=== PATIENT | male | born 1960 ===

== ENCOUNTER 2021-02-25 13:30 | Emergency (ER) | payer OTHER ==
[~2021-02-25] VITALS: Ht 185.4 cm; Wt 145.2 kg
[2021-02-25 14:10] LABS: BASOPHILS ABSOLUTE AUTO 0.07 K/mm3 (0.00-0.23); BASOPHILS PERCENT AUTO 1 % (0-2); EOSINOPHILS ABSOLUTE AUTO 0.07 K/mm3 (0.00-0.68); EOSINOPHILS PERCENT AUTO 1 % (0-6); Hematocrit 41.6 % (37.0-53.0); Hemoglobin 14.3 g/dL (13.5-17.5); IMMATURE GRAN ABSOLUTE AUTO 0.01 K/mm3 (0.00-0.10); IMMATURE GRAN PERCENT AUTO 0 % (0-1); LYMPHOCYTES ABSOLUTE AUTO 1.77 K/mm3 (0.84-5.20); LYMPHOCYTES PERCENT AUTO 25 % (21-46); MONOCYTES ABSOLUTE AUTO 0.66 K/mm3 (0.16-1.47); MONOCYTES PERCENT AUTO 9 % (4-13); Mean Corpuscular HGB 29.9 pg (26.0-34.0); Mean Corpuscular HGB Conc 34.4 g/dL (31.5-36.5); Mean Corpuscular Volume 87 fL (80-100); NEUTROPHILS ABSOLUTE AUTO 4.46 K/mm3 (1.96-9.15); NEUTROPHILS PERCENT AUTO 63 % (41-73); Platelet Count 62 K/mm3 (150-400); RDW Coefficient Variation 14.1 % (11.7-14.2); RDW Standard Deviation 45.4 fL (35.1-46.3); Red Blood Cell Count 4.78 M/mm3 (4.30-5.90); White Blood Cell Count 7.04 K/mm3 (4.00-11.30)
[2021-02-25 14:18] LABS: Mean Platelet Volume 13.7 fL (9.1-12.4)
[2021-02-25 14:32] LABS: Alanine Aminotransfer (ALT/SGP 46 U/L (12-78); Albumin/Globulin Ratio 0.8 (0.8-1.8); Alk Phos 58 U/L (50-136); Anion Gap 5 mmol/L (6-16); Aspartate Aminotrans (AST/SGOT 46 U/L (12-37); Bilirubin, Total 1.7 mg/dL (0.1-1.0); Blood Urea Nitrogen 9 mg/dL (8-24); Bun/Creatinine Ratio 11.4 (12.0-20.0); CO2, Blood 29 mmol/L (21-32); Calcium, Blood 8.5 mg/dL (8.5-10.1); Chloride, Blood 102 mmol/L (98-108); Creatinine, Blood 0.79 mg/dL (0.60-1.20); Glomerular Filtration Rate >60 (60-); Glucose, Blood 213 mg/dL (70-99); Potassium, Blood 3.5 mmol/L (3.5-5.5); Sodium, Blood 136 mmol/L (136-145); Troponin I <0.015 ng/mL (0.000-0.040)
[2021-02-25] MEDS ORDERED: Prednisone20 MG PO (16:29)
[2021-02-25] MEDS ORDERED: INSULIN SYRING SC (16:29)
== END 2021-02-25 16:56 | disposition home or self-care (01) ==
LOC: ER 13:30
PROVIDERS: Physician Assistant
DX: E11.40 Type 2 diabetes mellitus with diabetic neuropathy, unspecified (principal); R60.0 Localized edema; I10 Essential (primary) hypertension
CPT/HCPCS: 71046; 80053; 83690; 83880; 84484; 85025; 93005; 93010; 93922; 96374; 99284-25; J3010

== ENCOUNTER 2021-08-23 13:50 | Inpatient (IN) | payer OTHER ==
[~2021-08-23] VITALS: Ht 185.4 cm; Wt 119.9 kg
[~2021-08-23 13:50] MED LIST: INSULIN SYRING SC; Prednisone20 MG PO
[2021-08-23 14:49] LABS: BASOPHILS ABSOLUTE AUTO 0.06 K/mm3 (0.00-0.23); BASOPHILS PERCENT AUTO 0 % (0-2); EOSINOPHILS ABSOLUTE AUTO 0.01 K/mm3 (0.00-0.68); EOSINOPHILS PERCENT AUTO 0 % (0-6); Hematocrit 40.8 % (37.0-53.0); Hemoglobin 13.5 g/dL (13.5-17.5); IMMATURE GRAN ABSOLUTE AUTO 0.12 K/mm3 (0.00-0.10); IMMATURE GRAN PERCENT AUTO 1 % (0-1); LYMPHOCYTES ABSOLUTE AUTO 1.92 K/mm3 (0.84-5.20); LYMPHOCYTES PERCENT AUTO 9 % (21-46); MONOCYTES PERCENT AUTO 4 % (4-13); Mean Corpuscular HGB 30.3 pg (26.0-34.0); Mean Corpuscular HGB Conc 33.1 g/dL (31.5-36.5); Mean Corpuscular Volume 92 fL (80-100); Mean Platelet Volume 12.7 fL (9.1-12.4); NEUTROPHILS ABSOLUTE AUTO 19.76 K/mm3 (1.96-9.15); NEUTROPHILS PERCENT AUTO 87 % (41-73); Platelet Count 188 K/mm3 (150-400); RDW Coefficient Variation 14.7 % (11.7-14.2); RDW Standard Deviation 49.5 fL (35.1-46.3); Red Blood Cell Count 4.46 M/mm3 (4.30-5.90); White Blood Cell Count 22.67 K/mm3 (4.00-11.30)
[2021-08-23 15:22] LABS: Alanine Aminotransfer (ALT/SGP 34 U/L (12-78); Albumin, Blood 3.4 g/dL (3.4-5.0); Albumin/Globulin Ratio 0.8 (0.8-1.8); Alk Phos 43 U/L (50-136); Anion Gap 19 mmol/L (6-16); Aspartate Aminotrans (AST/SGOT 30 U/L (12-37); Bilirubin, Total 1.6 mg/dL (0.1-1.0); Blood Urea Nitrogen 56 mg/dL (8-24); Bun/Creatinine Ratio 60.4 (12.0-20.0); CO2, Blood 19 mmol/L (21-32); Calcium, Blood 10.5 mg/dL (8.5-10.1); Chloride, Blood 102 mmol/L (98-108); Creatinine, Blood 0.93 mg/dL (0.60-1.20); Globulin, Blood 4.1 g/dL (2.2-4.0); Glomerular Filtration Rate >60 (60-); Glucose, Blood 232 mg/dL (70-99); Potassium, Blood 4.5 mmol/L (3.5-5.5); Sodium, Blood 140 mmol/L (136-145); Total Protein, Blood 7.5 g/dL (6.4-8.2)
[2021-08-23] MEDS ORDERED: METF500 PO (16:13)
[2021-08-23] MEDS ORDERED: ONDA4ODT (16:13)
[2021-08-23] MEDS ORDERED: GABA800 PO (16:13)
[2021-08-23] MEDS ORDERED: LISI5 PO (16:13)
[2021-08-23] MEDS ORDERED: ZOCOR20 MG PO (16:14)
[2021-08-23] MEDS ORDERED: Percocet 5-3251 EACH PO (16:14)
[2021-08-23] MEDS ORDERED: GABA100 PO (16:15)
[2021-08-23] MEDS ORDERED: FURO20 PO (16:16)
[2021-08-23] MEDS ORDERED: Aspir 8181 MG PO (16:16)
[2021-08-23] MEDS ORDERED: VITAMIN D310 MC5 PO (16:16)
[2021-08-23] MEDS ORDERED: STEGLATRO5 MG PO (16:17)
[2021-08-23 18:08] LABS: Troponin I <0.015 ng/mL (0.000-0.040)
[2021-08-23 19:55] LABS: Influenza A, PCR NEGATIVE (NEGATIVE); Influenza B, PCR NEGATIVE (NEGATIVE); Resp Syncytial Virus, PCR NEGATIVE (NEGATIVE); SARS-Cov-2 (COVID-19) PCR, MMC NEGATIVE (NEGATIVE)
[2021-08-23 21:08] LABS: Source, Urine Clean Catch
[2021-08-23 21:14] LABS: Appearance, Urine Clear (Clear); Bilirubin, Urine Neg (Neg); Blood, Urine Neg (Neg); Color, Urine Yellow (P-Yellow); Glucose Qualitative, Urine 4+ (Neg); Ketones, Urine 2+ (Neg); Leukocyte Esterase, Urine Neg (Neg); Nitrite, Urine Neg (Neg); Protein, Urine 1+ (Neg); Specific Gravity, Urine 1.015 (1.003-1.022); Urobilinogen, Urine NORM (Normal)
[2021-08-23 23:04] LABS: International Normalized Ratio 1.3; Prothrombin Time Results 13.4 Sec (9.7-11.5)
[2021-08-23 23:12] LABS: Percent Saturation 29.4 % (20.0-50.0)
[2021-08-24 03:17] LABS: BASOPHILS ABSOLUTE AUTO 0.03 K/mm3 (0.00-0.23); BASOPHILS PERCENT AUTO 0 % (0-2); EOSINOPHILS ABSOLUTE AUTO 0.01 K/mm3 (0.00-0.68); EOSINOPHILS PERCENT AUTO 0 % (0-6); Hematocrit 32.9 % (37.0-53.0); Hemoglobin 11.3 g/dL (13.5-17.5); IMMATURE GRAN ABSOLUTE AUTO 0.06 K/mm3 (0.00-0.10); IMMATURE GRAN PERCENT AUTO 0 % (0-1); LYMPHOCYTES ABSOLUTE AUTO 2.14 K/mm3 (0.84-5.20); LYMPHOCYTES PERCENT AUTO 15 % (21-46); MONOCYTES ABSOLUTE AUTO 1.38 K/mm3 (0.16-1.47); MONOCYTES PERCENT AUTO 9 % (4-13); Mean Corpuscular HGB 30.9 pg (26.0-34.0); Mean Corpuscular HGB Conc 34.3 g/dL (31.5-36.5); Mean Corpuscular Volume 90 fL (80-100); NEUTROPHILS ABSOLUTE AUTO 11.04 K/mm3 (1.96-9.15); NEUTROPHILS PERCENT AUTO 75 % (41-73); Platelet Count 78 K/mm3 (150-400); RDW Coefficient Variation 14.9 % (11.7-14.2); RDW Standard Deviation 48.9 fL (35.1-46.3); Red Blood Cell Count 3.66 M/mm3 (4.30-5.90); White Blood Cell Count 14.66 K/mm3 (4.00-11.30)
[2021-08-24 03:31] LABS: International Normalized Ratio 1.28; Prothrombin Time Results 13.2 Sec (9.7-11.5)
[2021-08-24 03:43] LABS: Alanine Aminotransfer (ALT/SGP 31 U/L (12-78); Albumin, Blood 2.8 g/dL (3.4-5.0); Albumin/Globulin Ratio 0.8 (0.8-1.8); Alk Phos 30 U/L (50-136); Anion Gap 6 mmol/L (6-16); Aspartate Aminotrans (AST/SGOT 20 U/L (12-37); Bilirubin, Total 0.9 mg/dL (0.1-1.0); Blood Urea Nitrogen 48 mg/dL (8-24); Bun/Creatinine Ratio 52.7 (12.0-20.0); CO2, Blood 27 mmol/L (21-32); Chloride, Blood 105 mmol/L (98-108); Creatinine, Blood 0.91 mg/dL (0.60-1.20); Globulin, Blood 3.6 g/dL (2.2-4.0); Glomerular Filtration Rate >60 (60-); Glucose, Blood 186 mg/dL (70-99); Sodium, Blood 138 mmol/L (136-145); Total Protein, Blood 6.4 g/dL (6.4-8.2)
--- NOTE | 2021-08-24 05:56 | NUR ---
SHIFT SUMMARY ASSUMED CARE OF PT AT 2139. PT IS A/OX4. PT IS BLIND. PT HAS N/T IN LOWER EXTREMITES. HEART SOUNDS REGULAR, LUNG SOUNDS CLEAR. PT USED URINAL T/O THE NIGHT. PT C/O PAIN IN ABD, MEDICATED PER EMAR. CALL LIGHT IN REACH, BED IN LOWEST POSTION.
--- NOTE | 2021-08-24 10:24 | NUR ---
PATIENT ALERT AND ORIENTED X4. NUMBNESS AND TINLING TO BILAT LOWER EXTREM, PT STATES CHRONIC. BLIND IN BOTH EYES. RESPIRATORY WNL. TELE SHOWING SINUS WITH HR 80-90'S. BP STABLE. DENIES CHEST PAIN/PRESSURE. MINIMAL EDEMA TO LOWER EXTREMITIES. BIG TOE ON LEFT SIDE AMPUTATED. PATIENT OVERALL WEAK. ABLE TO TURN SELF IN BED. ABDOMIN DISTENDED PER PATIENT NOT ABNORMAL. TENDER TO TOUCH, PATIENT STATES ABDOMEN IS FEELING BETTER THAN YESTERDAY. NO SIGNS OF BLEEDING. SANDOSTATIN INFUSING. ANTIBIOTICS INFUSED THIS AM. ACHS BLOOD SUGARS. NPO AT THIS TIME FOR ENDOSCOPY. CALL LIGHT IN REACH, PATIENT SLEEPING AT THIS TIME. WILL CONTINUE TO MONITOR.
[2021-08-24 11:07] LABS: Hematocrit 32.5 % (37.0-53.0); Hemoglobin 10.9 g/dL (13.5-17.5)
--- NOTE | 2021-08-24 12:36 | NUR ---
08/24/21 1236 Andre Muse History, Chart, Medications and Allergies reviewed before start of procedure.MONITOR INTACT WITH CONTINUOUS PULSE OXIMETRY AND INTERMITTENT BP.3-LEAD EKG REVIEWED WITH PHYSICIAN PRIOR TO START OF PROCEDURE.O2 VIA POM INTACT THROUGHOUT SEDATION/PROCEDURE. See Anesthesia record.
--- NOTE | 2021-08-24 13:20 | NUR ---
PT BACK FROM ENDOSCOPY. SLEEPY AT THIS TIME. VITAL SIGNS STABLE. SPOKE WITH DR. SCOTT TO CONFIRM PROPANOLOL. SANDOSTATIN AND NORMAL SALINE CONTINUES TO INFUSE. FULL LIQUID DIET. WILL CONTINUE TO MONITOR. CALL LIGHT IN REACH.
--- NOTE | 2021-08-24 18:12 | NUR ---
SHIFT SUMMARY: NO ACUTE CHANGES. PATIENT TOLERATING FULL LIQUID DIET AT THIS TIME. SANDOSTATIN AND NS INFUSING. CALL LIGHT IN REACH. SEE PREVIOUS NOTES. ON ROOM AIR. TELE SHOWING SINUS RHYTHM. WILL REPORT OFF TO ONCOMING RN.
[2021-08-24 19:25] LABS: Hematocrit 30.7 % (37.0-53.0); Hemoglobin 10.4 g/dL (13.5-17.5)
[2021-08-25 04:13] LABS: Hematocrit 30.6 % (37.0-53.0); Hemoglobin 10.3 g/dL (13.5-17.5)
--- NOTE | 2021-08-25 13:22 | NUR ---
PT ALERT AND ORIENTED X4. NEURO WNL, BESIDES CHRONIC BLINDNESS AND NEUROPATHY TO BLE. ABLE TO MOVE ALL EXTREMITIES IN BED. NEEDS ENCOURAGEMENT TO MOVE. ON ROOM AIR SATING WNL. TELE SHOWED SINUS RHYTHM WITH HR 70'S THIS AM. DENIES CHEST PAIN/PRESSURE. COMPLAINS OF ABDOMINAL DISCOMFORT AT TIMES. DR. SCOTT IN TO SEE PATIENT THIS AM. OCTREOTIDE INFUSING. ANTIBIOTICS INFUSED. USING URINAL. 1 PERSON HEAVY ASSIST. ACHS BLOOD SUGARS. TURNING SELF IN BED. SPOKE WITH SISTER/CAREGIVER STEPH ON PHONE FOR UPDATE. USING CALL LIGHT. ABLE TO TAKE PILLS WHOLE WITH WATER. TOLERATING FULL LIQUID DIET. REPORTED OFF TO MEDICAL FLOOR NURSE. WILL TRANSFER VIA BED WITH ALL PERSONAL BELONGINGS.
--- NOTE | 2021-08-25 19:27 | NUR ---
Alert and oriented x 3, c/o abdomen pain , fentayl was given once and it was effective. Sandostatin infusing , continue to monitor. Call light within reach.
--- NOTE | 2021-08-26 04:56 | NUR ---
SHIFT SUMMARY PT PLEASANT AND COOPERATIVE. SLEPT OFF AND ON THIS EVENING. PT WAS ABLE TO SIP ON SOME BROTH AND WATER WITHOUT INCREASE IN ABD DISCOMFORT. PT DID COMPLAIN OF ABD PAIN, STATES IT IS "EVERWHERE" AND TENDER TO THE TOUCH. PT REPORTS THE PAIN IS UNCHANGED SINCE ADMISSION. MEDICATED X 1 W/ IV FENTANYL WITH GOOD EFFECT. PT DENIES ANY NAUSEA. REMAINS ON SANDOSTATIN DRIP. PT IS COMPLETELY BLIND, REQUIRED ASSISTANCE WHEN DRINKING BROTH. VITAL SIGNS REMAINED STABLE. NO ACUTE CHANGES THIS EVENING.
[2021-08-26 05:08] LABS: HBSAG SCREEN Negative (Negative); HEP B CORE AB, TOT Negative (Negative); HEP C VIRUS AB <0.1 (0.0-0.9)
--- NOTE | 2021-08-26 19:40 | NUR ---
Alert and oriented x3 , able to make needs known. vital signs are stable. Continue on sandostatin , no adverse effects. One person assist with ADLS. Insulin coverage was given, no adverse effects noted. No event occcurs. Continue to monitor.
[2021-08-27 05:57] LABS: BASOPHILS ABSOLUTE AUTO 0.08 K/mm3 (0.00-0.23); BASOPHILS PERCENT AUTO 1 % (0-2); EOSINOPHILS ABSOLUTE AUTO 0.13 K/mm3 (0.00-0.68); EOSINOPHILS PERCENT AUTO 1 % (0-6); Hematocrit 32.8 % (37.0-53.0); Hemoglobin 11.4 g/dL (13.5-17.5); IMMATURE GRAN ABSOLUTE AUTO 0.04 K/mm3 (0.00-0.10); IMMATURE GRAN PERCENT AUTO 0 % (0-1); LYMPHOCYTES ABSOLUTE AUTO 3.05 K/mm3 (0.84-5.20); LYMPHOCYTES PERCENT AUTO 33 % (21-46); MONOCYTES ABSOLUTE AUTO 0.82 K/mm3 (0.16-1.47); MONOCYTES PERCENT AUTO 9 % (4-13); Mean Corpuscular HGB 31.2 pg (26.0-34.0); Mean Corpuscular HGB Conc 34.8 g/dL (31.5-36.5); Mean Corpuscular Volume 90 fL (80-100); Mean Platelet Volume 12.7 fL (9.1-12.4); NEUTROPHILS ABSOLUTE AUTO 5.19 K/mm3 (1.96-9.15); NEUTROPHILS PERCENT AUTO 56 % (41-73); NRBC ABSOLUTE 0.02 K/mm3 (0.00-0.02); NRBC Auto 0.2 /100 WBC (0.0-0.2); Platelet Count 80 K/mm3 (150-400); RDW Coefficient Variation 14.6 % (11.7-14.2); RDW Standard Deviation 47.2 fL (35.1-46.3); Red Blood Cell Count 3.65 M/mm3 (4.30-5.90); White Blood Cell Count 9.31 K/mm3 (4.00-11.30)
[2021-08-27 06:37] LABS: Alanine Aminotransfer (ALT/SGP 36 U/L (12-78); Albumin, Blood 2.5 g/dL (3.4-5.0); Albumin/Globulin Ratio 0.7 (0.8-1.8); Alk Phos 33 U/L (50-136); Anion Gap 7 mmol/L (6-16); Aspartate Aminotrans (AST/SGOT 30 U/L (12-37); Bilirubin, Direct 0.3 mg/dL (0.0-0.3); Bilirubin, Indirect 0.4 mg/dL (0.1-0.7); Bilirubin, Total 0.7 mg/dL (0.1-1.0); Blood Urea Nitrogen 13 mg/dL (8-24); Bun/Creatinine Ratio 18.4 (12.0-20.0); CO2, Blood 27 mmol/L (21-32); Calcium, Blood 8.6 mg/dL (8.5-10.1); Chloride, Blood 105 mmol/L (98-108); Creatinine, Blood 0.71 mg/dL (0.60-1.20); Globulin, Blood 3.4 g/dL (2.2-4.0); Glomerular Filtration Rate >60 (60-); Glucose, Blood 166 mg/dL (70-99); Potassium, Blood 4.3 mmol/L (3.5-5.5); Sodium, Blood 139 mmol/L (136-145); Total Protein, Blood 5.9 g/dL (6.4-8.2)
[2021-08-27 07:09] LABS: CERULOPLASMIN 20.5 mg/dL (16.0-31.0)
--- NOTE | 2021-08-27 07:38 | NUR ---
CREPE SOLE SCOURER SUMMARY PATIENT HAD A FAIR SHIFT. STILL HAVING CHRONIC PAIN. HE HAD HIS MEDICATIONS. NO OTHER COMPLAINTS LODGED. WILL CONTINUE TO MONITOR HIM.
--- NOTE | 2021-08-27 18:19 | NUR ---
Alert and oriented x3 , able to make needs known. One person assist with ADLS. Vital signs are stable. Insulin coverage was given , no adverse effects noted. Sandostatin discontinued. Nenana 1 tab po was given for pain management, it was effective. Denies any headache , nausea , shortness of breath or chest pain. Call light within reach. Continue to monitor.
--- NOTE | 2021-08-28 05:15 | NUR ---
INSPECTOR FINISHING SUMMARY PATIENT HAD A FAIR SHIFT, WITH HRT RATE FLUCTUATING IN THE 120S. HE IS ASYMTOMATIC. MOSTLY ASLEEP. WILL CONTINUE TO MONITOR HIM.
[2021-08-28 06:20] LABS: BASOPHILS ABSOLUTE AUTO 0.09 K/mm3 (0.00-0.23); BASOPHILS PERCENT AUTO 1 % (0-2); EOSINOPHILS ABSOLUTE AUTO 0.14 K/mm3 (0.00-0.68); EOSINOPHILS PERCENT AUTO 2 % (0-6); Hematocrit 32.1 % (37.0-53.0); IMMATURE GRAN ABSOLUTE AUTO 0.04 K/mm3 (0.00-0.10); IMMATURE GRAN PERCENT AUTO 1 % (0-1); LYMPHOCYTES PERCENT AUTO 30 % (21-46); MONOCYTES ABSOLUTE AUTO 0.79 K/mm3 (0.16-1.47); MONOCYTES PERCENT AUTO 10 % (4-13); Mean Corpuscular HGB 30.9 pg (26.0-34.0); Mean Corpuscular HGB Conc 34.3 g/dL (31.5-36.5); Mean Corpuscular Volume 90 fL (80-100); Mean Platelet Volume 11.9 fL (9.1-12.4); NEUTROPHILS ABSOLUTE AUTO 4.76 K/mm3 (1.96-9.15); NEUTROPHILS PERCENT AUTO 57 % (41-73); Platelet Count 70 K/mm3 (150-400); RDW Standard Deviation 47.2 fL (35.1-46.3); Red Blood Cell Count 3.56 M/mm3 (4.30-5.90); White Blood Cell Count 8.32 K/mm3 (4.00-11.30)
[2021-08-28 06:43] LABS: Alanine Aminotransfer (ALT/SGP 30 U/L (12-78); Albumin, Blood 2.4 g/dL (3.4-5.0); Albumin/Globulin Ratio 0.8 (0.8-1.8); Alk Phos 35 U/L (50-136); Anion Gap 8 mmol/L (6-16); Aspartate Aminotrans (AST/SGOT 25 U/L (12-37); Bilirubin, Total 0.9 mg/dL (0.1-1.0); Blood Urea Nitrogen 10 mg/dL (8-24); Bun/Creatinine Ratio 13.3 (12.0-20.0); CO2, Blood 28 mmol/L (21-32); Calcium, Blood 8.4 mg/dL (8.5-10.1); Chloride, Blood 104 mmol/L (98-108); Creatinine, Blood 0.75 mg/dL (0.60-1.20); Globulin, Blood 3.1 g/dL (2.2-4.0); Glomerular Filtration Rate >60 (60-); Glucose, Blood 155 mg/dL (70-99); Potassium, Blood 3.9 mmol/L (3.5-5.5); Sodium, Blood 140 mmol/L (136-145); Total Protein, Blood 5.5 g/dL (6.4-8.2)
--- NOTE | 2021-08-28 06:48 | NUR ---
ASSISTED LIVING COORDINATOR SUMMARY PATIENT HAD A FAIR SHIFT SHIFT. HIS BP WAS LOW THIS MORNING SEE CHART, PATIENT ASSESSED AND NOT IN ANY DISTRESS. DR. GONGORA WAS INFORMED AND HE ORDERED CBC AND CMP STAT. WILL CONTINUE TO MONITOR PT.
[2021-08-28] MEDS ORDERED: GABA300 PO (13:13)
[2021-08-28] MEDS ORDERED: PANT20 PO (13:16)
--- NOTE | 2021-08-28 14:46 | NUR ---
Per chart review with Dr. Law, patient is appropriate for discharge. Pt denies barriers to discharge and feels safe to return home with his sister and [id number]. I contacted pt's sister Rupal Woodward, to coordinate discharge transportation for the patient. She is on her way to work so her and son will be coming to pick the patient up and take him home. Pt and pt's nurse is aware of this. Hopsital follow up appointment scheduled with Cassy Collins for next Saturday, September 04, 2021 @ 10:40AM. Pt and his sister are aware of this appointment.
== END 2021-08-28 18:44 | disposition home or self-care (01) | DRG 432 ==
LOC: ER 13:50 → ERHOLD 13:51 → PCU 13:51 → MEDS 08-25 13:56
PROVIDERS: Emergency Medicine; Internal Medicine; Internal Medicine Gastroenterology; ADMIT Internal Medicine
PROC: 0DJ08ZZ Inspection of Upper Intestinal Tract, Via Natural or Artificial Opening Endoscopic (ICD-10-PCS; principal; 2021-08-24 11:30)
DX: K70.30 Alcoholic cirrhosis of liver without ascites (principal); I85.11 Secondary esophageal varices with bleeding; E87.2 Acidosis; K57.92 Diverticulitis of intestine, part unspecified, without perforation or abscess without bleeding; D62 Acute posthemorrhagic anemia; K76.6 Portal hypertension; Z20.822 Contact with and (suspected) exposure to COVID-19; K31.89 Other diseases of stomach and duodenum; E86.0 Dehydration; I10 Essential (primary) hypertension; E11.42 Type 2 diabetes mellitus with diabetic polyneuropathy; Z68.33 Body mass index [BMI] 33.0-33.9, adult; E66.9 Obesity, unspecified; D72.829 Elevated white blood cell count, unspecified; H54.7 Unspecified visual loss; E78.5 Hyperlipidemia, unspecified; Z89.412 Acquired absence of left great toe; Z79.899 Other long term (current) drug therapy; Z28.21 Immunization not carried out because of patient refusal; Z79.84 Long term (current) use of oral hypoglycemic drugs; Z79.82 Long term (current) use of aspirin; Z98.890 Other specified postprocedural states
CPT/HCPCS: 0241U; 36415; 74177; 80048; 80053; 80076; 82105; 82272; 82390; 82728; 82947; 83540; 83550; 83605; 83690; 84484; 85014; 85018; 85025; 85610; 86317; 86704; 86708; 86803; 86850; 86900; 86901; 87040; 87340; 93005; 93010; 96365; 96367; 96375; 96376; 99285-25; A9270; C9113; G0378; J0696; J1170; J2001; J2250; J2354; J2370; J2405; J2543; J2704; J3010; J7030; J7050; J7120; Q9967